=== PATIENT | male | born 2000 | race Caucasian/White ===

== ENCOUNTER 2020-06-15 02:14 | Emergency (ER) | payer OTHER ==
[~2020-06-15] VITALS: Ht 180 cm; Wt 68.0 kg
--- NOTE | 2020-06-15 02:36 | ED Psychosocial ---
General Chief Complaint: Suicidal Ideation Risk Stated Complaint: MEDICAL CLEAR. Source: patient Exam Limitations: no limitations History of Present Illness Date Seen by Provider: Jun 15, 2020 Time Seen by Provider: 02:18 Initial Comments Here under the care of [facility] police officers after having mental health screening through [facility]. Patient apparently is being involuntarily admitted and has a bed at [facility] but requires medical clearance. The did bring a list of medical clearance items. Apparently the patient was with his roommates and made the statement that suicide is always an option. He states he does not remember the context and now but does admit to the statement. Is not forthcoming with information regarding suicidality and denies homicidal ideations. Timing/Duration: this morning, yesterday Severity: moderate Associated Symptoms: suicidal ideation Allergies and Home Medications Allergies Coded Allergies: No Known Drug Allergies (Unverified , 06/15/20) Patient Home Medication List Home Medication List Reviewed: Yes Review of Systems Constitutional: see HPI; No chills, No fever EENTM: No nose congestion, No throat pain Respiratory: No cough, No short of breath Cardiovascular: no symptoms reported; No chest pain Gastrointestinal: No abdominal pain, No diarrhea, No nausea, No vomiting Genitourinary: no symptoms reported Musculoskeletal: no symptoms reported Psychiatric/Neurological: See HPI, Emotional Problems All Other Systems Reviewed Negative Unless Noted: Yes Past Oiipqmz-Mqeaik-Hmsmzl Hx Past Med/Social Hx: Reviewed Nursing Past Med/Soc Hx Patient Social History Alcohol Use: Occasionally Uses Recreational Drug Use: Yes (occasional THC) Smoking Status: Never a Smoker Past Medical History Surgeries: No Respiratory: No Cardiac: No Neurological: No Genitourinary: No Gastrointestinal: No Musculoskeletal: No Endocrine: No Psychosocial: Yes Anxiety Family Medical History Reviewed Nursing Family Hx No Pertinent Family Hx Physical Exam Vital Signs - First Documented 06/15/20 02:32 Temp 36.5 Pulse 81 Resp 18 B/P (MAP) 145/94 (111) Pulse Ox 96 O2 Delivery Room Air Capillary Refill : Height, Weight, BMI Height: '" Weight: lbs. oz. kg; BMI Method: General Appearance: WD/WN, no apparent distress HEENT: PERRL/EOMI, pharynx normal Neck: non-tender, full range of motion, supple, normal inspection Respiratory: lungs clear, normal breath sounds Cardiovascular: regular rate, rhythm, no murmur Peripheral Pulses: 2+ Dorsalis Pedis (R), 2+ Left Dors-Pedis (L), 2+ Radial Pulses (R), 2+ Radial Pulses (L) Gastrointestinal: non tender, soft Extremities: non-tender, normal inspection Neurologic/Psychiatric: alert, oriented x 3 Appearance/Memory: appropriate appearance Behavior/Eye Contact: good eye contact, normal speech, refused to answer Thoughts/Hallucinations: no apparent hallucination Skin: normal color, warm/dry Progress/Results/Core Measures Results/Orders Lab Results Laboratory Tests Test 06/15/20 02:35 06/15/20 02:40 06/15/20 03:00 Range/Units Coronavirus 2019 ([facility]) Negative Negative White Blood Count 6.6 4.3-11.0 10^3/uL Red Blood Count 4.77 4.30-5.52 10^6/uL Hemoglobin 14.3 13.3-17.7 g/dL Hematocrit 42 40-54 % Mean Corpuscular Volume 88 80-99 fL Mean Corpuscular Hemoglobin 30 25-34 pg Mean Corpuscular Hemoglobin Concent 34 32-36 g/dL Red Cell Distribution Width 12.4 10.0-14.5 % Platelet Count 246 130-400 10^3/uL Mean Platelet Volume 10.4 9.0-12.2 fL Immature Granulocyte % (Auto) 0 % Neutrophils (%) (Auto) 55 42-75 % Lymphocytes (%) (Auto) 33 12-44 % Monocytes (%) (Auto) 8 0-12 % Eosinophils (%) (Auto) 4 0-10 % Basophils (%) (Auto) 1 0-10 % Neutrophils # (Auto) 3.6 1.8-7.8 10^3/uL Lymphocytes # (Auto) 2.2 1.0-4.0 10^3/uL Monocytes # (Auto) 0.5 0.0-1.0 10^3/uL Eosinophils # (Auto) 0.2 0.0-0.3 10^3/uL Basophils # (Auto) 0.0 0.0-0.1 10^3/uL Immature Granulocyte # (Auto) 0.0 0.0-0.1 10^3/uL Sodium Level 140 135-145 MMOL/L Potassium Level 3.9 3.6-5.0 MMOL/L Chloride Level 104 98-107 MMOL/L Carbon Dioxide Level 25 21-32 MMOL/L Anion Gap 11 5-14 MMOL/L Blood Urea Nitrogen 14 7-18 MG/DL Creatinine 0.89 0.60-1.30 MG/DL Estimat Glomerular Filtration Rate > 60 BUN/Creatinine Ratio 16 Glucose Level 115 H 70-105 MG/DL Calcium Level 9.2 8.5-10.1 MG/DL Corrected Calcium 8.8 8.5-10.1 MG/DL Total Bilirubin 1.6 H 0.1-1.0 MG/DL Aspartate Amino Transf (AST/SGOT) 16 5-34 U/L Alanine Aminotransferase (ALT/SGPT) 10 0-55 U/L Alkaline Phosphatase 62 40-136 U/L Total Protein 7.9 6.4-8.2 GM/DL Albumin 4.5 3.2-4.5 GM/DL Thyroid Stimulating Hormone (TSH) 1.65 0.35-4.94 UIU/ML Free Thyroxine 1.05 0.70-1.48 NG/DL Salicylates Level < 5.0 L 5.0-20.0 MG/DL Acetaminophen Level < 10 L 10-30 UG/ML Serum Alcohol < 10 <10 MG/DL Urine Color YELLOW Urine Clarity CLEAR Urine pH 6.0 5-9 Urine Specific [place] >=1.030 1.016-1.022 Urine Protein NEGATIVE NEGATIVE Urine Glucose (UA) NEGATIVE NEGATIVE Urine Ketones NEGATIVE NEGATIVE Urine Nitrite NEGATIVE NEGATIVE Urine Bilirubin NEGATIVE NEGATIVE Urine Urobilinogen 2.0 < = 1.0 MG/DL Urine Leukocyte Esterase NEGATIVE NEGATIVE Urine RBC (Auto) NEGATIVE NEGATIVE Urine RBC NONE /HPF Urine WBC NONE /HPF Urine Squamous Epithelial Cells 0-2 /HPF Urine Crystals PRESENT H /LPF Urine Calcium Oxalate Crystals LARGE H /LPF Urine Bacteria NEGATIVE /HPF Urine Casts NONE /LPF Urine Mucus MODERATE H /LPF Urine Culture Indicated NO Urine Opiates Screen NEGATIVE NEGATIVE Urine Oxycodone Screen NEGATIVE NEGATIVE Urine Methadone Screen NEGATIVE NEGATIVE Urine Propoxyphene Screen NEGATIVE NEGATIVE Urine Barbiturates Screen NEGATIVE NEGATIVE Ur Tricyclic Antidepressants Screen NEGATIVE NEGATIVE Urine Phencyclidine Screen NEGATIVE NEGATIVE Urine Amphetamines Screen NEGATIVE NEGATIVE Urine Methamphetamines Screen NEGATIVE NEGATIVE Urine Benzodiazepines Screen NEGATIVE NEGATIVE Urine Cocaine Screen NEGATIVE NEGATIVE Urine Cannabinoids Screen POSITIVE H NEGATIVE My Orders Orders - TISHA ALMANZA MD Covid 19 Inhouse Test (06/15/20 02:21) Ua Culture If Indicated (06/15/20 02:21) Cbc With Automated Diff (06/15/20 02:21) Comprehensive Metabolic Panel (06/15/20 02:21) Alcohol (06/15/20 02:21) Drug Screen Stat (Urine) (06/15/20 02:21) Acetaminophen (06/15/20 02:21) Salicylate (06/15/20 02:21) Ekg Tracing (06/15/20:) Monitor-Rhythm Ecg Trace Only (06/15/20 02:21) Bh Status Checks/Observation Q15M (06/15/20 02:21) Thyroid Stimulating Hormone (06/15/20:) Free T4 (Free Thyroxine) (06/15/20:) Vital Signs/I&O 06/15/20 02:32 Temp 36.5 Pulse 81 Resp 18 B/P (MAP) 145/94 (111) Pulse Ox 96 O2 Delivery Room Air Progress Progress Note : Progress Note Seen and evaluated. Labs, UA and EKG ordered. Rapid COVID-19 testing ordered. Monitor patient. [employer] law enforcement at bedside. 0346: Patient is medically cleared for transfer although we do not have information to home or where. Law enforcement is still with the patient and will transfer but we are awaiting screening information and report information from [facility] mental health evaluation service which they are reluctant to give. We are working with them now to try to get that information. Patient is reportedly involuntary admission per screening as told by law enforcement. Patient remains calm. Pending transfer information. We will try to verify with [facility] and provide report information that way. Monitor patient. 0402: We have obtained report from [facility]. We have called [facility] and there is no bed secured at this point but we are working with them to get a bed and get the patient transferred. Per paperwork he is involuntary admission after screening. Based on paperwork information, patient would benefit from mental health services. 0613: Patient accepted to [facility], Dr. Scott accepting. Patient to be transported via [facility] law enforcement. Initial ECG Impression Date: Jun 15, 2020 Initial ECG Impression Time: 02:30 Initial ECG Rate: 65 Initial ECG Rhythm: Normal Sinus Initial ECG Impression: Normal Initial ECG Comparisson: No Previous ECG Available Comment Sinus rhythm with normal axis. No evidence of ST elevation PA, interpreted by me. Departure Impression Primary Impression: Suicidal ideation Disposition: XFER SHT-TRM HOSP Condition: Stable Transfer Transfer Reason: Exceeds level of care Transfer Time: 06:13 Transfer Facility: [place], [place], Dr Scott accepting. Method of Transfer: Law Enforcement Departure-Patient Inst. Referrals: NO,LOCAL PHYSICIAN (PCP/Family) Primary Care Physician Patient Instructions: OUTPT MENTAL HEALTH SERVICES TISHA ALMANZA MD Jun 15, 2020 02:36
--- NOTE | 2020-06-15 02:47 | NUR ---
Pt arrives with 2 [employer] officers who state that yesterday afternoon they were called to this patients apartment twice; on the 2nd visit they were told by his roommates that the patient said he wanted to shoot himself and a gun was found in his room. Pt is denying SI/HI at this time and states that he is only here because he said, "suicide is always an option" but he states he was only joking. Pt was not forthcoming about the statement about the gun. [employer] officers remain in the room at the bedside.
[2020-06-15 02:49] LABS: BASOPHILS % (AUTO) 1 % (0-10); EOSINOPHILS # (AUTO) 0.2 10^3/uL (0.0-0.3); EOSINOPHILS % (AUTO) 4 % (0-10); HEMATOCRIT 42 % (40-54); HEMOGLOBIN 14.3 g/dL (13.3-17.7); LYMPHOCYTES # (AUTO) 2.2 10^3/uL (1.0-4.0); LYMPHOCYTES % (AUTO) 33 % (12-44); MEAN CORPUSCULAR HEMOGLOBIN 30 pg (25-34); MEAN CORPUSCULAR HGB CONC 34 g/dL (32-36); MEAN CORPUSCULAR VOLUME 88 fL (80-99); MEAN PLATELET VOLUME 10.4 fL (9.0-12.2); MONOCYTES # (AUTO) 0.5 10^3/uL (0.0-1.0); MONOCYTES % (AUTO) 8 % (0-12); NEUTROPHILS # (AUTO) 3.6 10^3/uL (1.8-7.8); NEUTROPHILS % (AUTO) 55 % (42-75); PLATELET COUNT 246 10^3/uL (130-400); WHITE BLOOD COUNT 6.6 10^3/uL (4.3-11.0)
[2020-06-15 03:00] LABS: CHLORIDE 104 MMOL/L (98-107); POTASSIUM 3.9 MMOL/L (3.6-5.0); SODIUM 140 MMOL/L (135-145)
[2020-06-15 03:01] LABS: ALBUMIN 4.5 GM/DL (3.2-4.5)
[2020-06-15 03:02] LABS: CALCIUM 9.2 MG/DL (8.5-10.1)
[2020-06-15 03:03] LABS: GLUCOSE 115 MG/DL (70-105); TOTAL PROTEIN 7.9 GM/DL (6.4-8.2)
[2020-06-15 03:04] LABS: CARBON DIOXIDE 25 MMOL/L (21-32)
[2020-06-15 03:05] LABS: BILIRUBIN,TOTAL 1.6 MG/DL (0.1-1.0)
[2020-06-15 03:07] LABS: ALKALINE PHOSPHATASE 62 U/L (40-136); CREATININE SERUM 0.89 MG/DL (0.60-1.30); GFR ESTIMATED > 60
[2020-06-15 03:08] LABS: BUN/CREATININE RATIO 16
[2020-06-15 03:10] LABS: ALANINE AMINOTRANSFERASE 10 U/L (0-55); SALICYLATE < 5.0 MG/DL (5.0-20.0)
[2020-06-15 03:13] LABS: BILIRUBIN,URINE NEGATIVE (NEGATIVE); CLARITY,URINE CLEAR; COLOR,URINE YELLOW; GLUCOSE, URINE (UA) NEGATIVE (NEGATIVE); KETONES,URINE NEGATIVE (NEGATIVE); LEUKOCYTE ESTERASE ,URINE NEGATIVE (NEGATIVE); NITRITE,URINE NEGATIVE (NEGATIVE); PROTEIN,URINE NEGATIVE (NEGATIVE)
[2020-06-15 03:19] LABS: ACETAMINOPHEN < 10 UG/ML (10-30)
[2020-06-15 03:26] LABS: AMPHETAMINE SCREEN, URINE NEGATIVE (NEGATIVE); BARBITURATE SCREEN URINE NEGATIVE (NEGATIVE); BENZODIAZEPINES SCREEN URINE NEGATIVE (NEGATIVE); CANNABINOID SCREEN, URINE POSITIVE (NEGATIVE); COCAINE SCREEN URINE NEGATIVE (NEGATIVE); METHADONE STAT NEGATIVE (NEGATIVE); METHAMPHETAMINE SCREEN URINE S NEGATIVE (NEGATIVE); OPIATE SCREEN URINE NEGATIVE (NEGATIVE); OXYCODONE STAT NEGATIVE (NEGATIVE); PROPOXYPHENE STAT NEGATIVE (NEGATIVE); TRICYCLIC ANTIDEPRESSANTS SCRE NEGATIVE (NEGATIVE)
[2020-06-15 03:34] LABS: FREE T4 (FREE THYROXINE) 1.05 NG/DL (0.70-1.48)
[2020-06-15 03:34] LABS: BACTERIA,URINE NEGATIVE /HPF; CALCIUM OXALATE CRYSTALS,UR LARGE /LPF; SQUAMOUS EPITHELIAL CELL,UR 0-2 /HPF
--- NOTE | 2020-06-15 04:00 | NUR ---
Pt resting; [employer] PD remains at bedside. Pt calm and cooperative.
--- NOTE | 2020-06-15 05:54 | NUR ---
Pt sleeping. [employer] remains at bedside.
--- NOTE | 2020-06-15 06:19 | NUR ---
Kitty? called from [facility] and pt has been accepted by Dr. Tyler MD to room 1210.
[2020-06-15 06:30] VITALS: BP 104/74
== END 2020-06-15 06:35 | disposition short-term general hospital (02) ==
LOC: ER 02:17
DX: R45.851 Suicidal ideations (principal); Z20.828 Contact with and (suspected) exposure to other viral communicable diseases
CPT/HCPCS: 80053; 80306; 81000; 84439; 84443; 85025; 93005; 93041; G0480 ×3; U0002; 36415; 80320; 80329; 87635